=== PATIENT | male | born 1975 | race Caucasian/White ===

== ENCOUNTER 2024-06-22 06:43 | Day surgery (SDC) | payer BC ==
[2024-06-22] MEDS: Lactated Ringers 1,000 ML IV SCH (07:12)
[2024-06-22] MEDS ORDERED: Bupivacaine 0.25% 30 ML SDV ONE (07:23)
[2024-06-22] MEDS ORDERED: ceFAZolin 1 GM Vial ONE (07:33)
[2024-06-22] MEDS ORDERED: Morphine 2 MG/ML SYRINGE IVPUSH PRN (07:46)
[2024-06-22] MEDS ORDERED: Naloxone 0.4 MG/ML SDV IVPUSH PRN (07:46)
[2024-06-22] MEDS ORDERED: Ondansetron 4 MG/2 ML SDV IVPUSH PRN (07:46)
[2024-06-22] MEDS ORDERED: Phenylephrine HCl In 0.9% NaCl 1 MG/10 ML Syringe IVPUSH PRN (07:46)
[2024-06-22] MEDS ORDERED: Albuterol 0.083% 2.5 MG/3 ML Neb Soln NEB PRN (07:46)
[2024-06-22] MEDS ORDERED: HYDROmorphone 1 MG/ML Syringe IVPUSH PRN (07:46)
[2024-06-22] MEDS ORDERED: fentaNYL 50 MCG/ML SDV IVPUSH PRN (07:46)
[2024-06-22] MEDS ORDERED: Metoclopramide 10 MG/2 ML SDV IVPUSH PRN (07:46)
[2024-06-22] MEDS ORDERED: ceFAZolin 2 GM in Sodium Chloride 0.9% 50 ML IV ONE (08:00)
[2024-06-22 08:58] VITALS: BP 140/91; PULSE 67
== END 2024-06-22 08:30 | disposition home or self-care (01) ==
LOC: MW.SDS 06:43
PROVIDERS: ATTEND Orthopaedic Surgery
DX: S60.454A Superficial foreign body of right ring finger, initial encounter (principal); I10 Essential (primary) hypertension; F17.210 Nicotine dependence, cigarettes, uncomplicated; Z88.5 Allergy status to narcotic agent; Z91.018 Allergy to other foods; Z79.899 Other long term (current) drug therapy
CPT/HCPCS: 10120; J0665; J0690; J7120